=== PATIENT | female | born 1980 | race Two or more races ===

== ENCOUNTER 2023-07-06 05:06 | Emergency (ER) | payer MEDICAID ==
[~2023-07-06] VITALS: Ht 157.5 cm; Wt 71.8 kg
[2023-07-06] MEDS ORDERED: morphine 4 MG/ML inj SYRINge IV ONE ×2 (05:45→06:50)
[2023-07-06] MEDS ORDERED: ondansetron/PF 4mg/2ml inj IV ONE ×2 (05:45→06:50)
[2023-07-06 05:57] LABS: BASOPHILS # (AUTO) 0.1 X10'3 (0-0.2); BASOPHILS % (AUTO) 0.4 % (0-1); EOSINOPHILS # (AUTO) 0.1 X10'3 (0-0.9); EOSINOPHILS % (AUTO) 0.3 % (0-6); HEMATOCRIT 44.2 % (35.0-45.0); HEMOGLOBIN 14.8 g/dl (12.0-16.0); LYMPHOCYTES # (AUTO) 1.1 X10'3 (1.1-4.8); LYMPHOCYTES % (AUTO) 6.6 % (21-51); MEAN CORPUSCULAR HEMOGLOBIN 28.4 PG (27.0-31.0); MEAN CORPUSCULAR HGB CONC 33.4 g/dL (33.0-36.5); MEAN CORPUSCULAR VOLUME 84.9 FL (78-98); MEAN PLATELET VOLUME 8.4 FL (7.4-10.4); MONOCYTES # (AUTO) 0.8 X10'3 (0-0.9); MONOCYTES % (AUTO) 4.5 % (2-12); NEUTROPHILS # (AUTO) 14.8 X10'3 (1.8-7.7); NEUTROPHILS % (AUTO) 88.2 % (42-75); PLATELET COUNT 230 X10'3 (140-440); RED BLOOD COUNT 5.21 X10'6 (4.20-5.60); RED CELL DISTRIBUTION WIDTH 14.2 % (11.5-14.5); WHITE BLOOD COUNT 16.8 X10'3 (4.5-11.0)
[2023-07-06 06:22] LABS: ALANINE AMINOTRANSFERASE 34 U/L (12-78); ALBUMIN 3.8 G/DL (3.4-5.0); ALKALINE PHOSPHATASE 77 IU/L (46-116); ANION GAP 9 (8-16); ASPARTATE AMINO TRANSFERASE 17 U/L (10-37); BILIRUBIN,TOTAL 0.6 MG/DL (0.1-1.0); BLOOD UREA NITROGEN 16 MG/DL (7-18); BUN/CREATININE RATIO 15.8 (10.0-20.0); CALCIUM 8.7 MG/DL (8.5-10.1); CHLORIDE 103 MMOL/L (99-107); CREATININE 1.01 MG/DL (0.40-0.90); GLUCOSE 124 MG/DL (70-104); LIPASE 92 U/L (73-393); POTASSIUM 3.5 MMOL/L (3.5-5.1); SODIUM 137 MMOL/L (135-145); TOTAL CARBON DIOXIDE 25.2 MMOL/L (24-32); TOTAL PROTEIN 7.6 G/DL (6.4-8.2); eCRCL 57 ML/MIN; eGFR 60 ML/MIN
[2023-07-06 06:38] VITALS: BP 117/71; PULSE 86; O2SAT 95
--- NOTE | 2023-07-06 06:42 | NUR ---
PT FAVIOLA AT BEDSIDE REPORTS THAT PT HAS NOT HAD MENSTRAL CYCLE IN YEARS DUE TO CONTROL INJECTION EVERY 3MONTHS FROM 2015 TO 2020. STARTED SPOTTING 1 WEEK AGO.
[2023-07-06] MEDS ORDERED: normal saline 1000ml 1,000 ML IV ONE (06:50)
[2023-07-06 07:22] VITALS: RESP 16
[2023-07-06 07:47] LABS: HCG SERUM QL NEGATIVE
[2023-07-06 12:59] LABS: BILIRUBIN,URINE NEGATIVE (Neg); CLARITY,URINE CLOUDY (Clear); COLOR,URINE YELLOW (Yellow); GLUCOSE, URINE NEGATIVE (Neg); KETONES,URINE 15 mg/dl (Neg); LEUKOCYTE ESTERASE ,URINE MODERATE (Neg); NITRITES, URINE NEGATIVE (Neg); OCCULT BLOOD,URINE LARGE (Neg); PROTEIN,URINE NEGATIVE (Neg)
[2023-07-06 13:50] LABS: UA COLLECTION TYPE CLN CATCH MIDSTREAM
[2023-07-06 13:51] LABS: BACTERIA,URINE 1+ /HPF (Neg); MUCUS STRANDS FEW /LPF (Neg); RBC,URINE TNTC /HPF (0-2); WBC,URINE 50-100 /HPF (0-4)
[2023-07-06 13:52] LABS: SQUAMOUS EPITHELIAL CELL,UR MANY /LPF (FEW); TRANSITIONAL EPI CELLS,URINE MODERATE /HPF
[2023-07-06] MEDS ORDERED: CEPH-585 PO (14:07)
[2023-07-06] MEDS ORDERED: HYDR-3965 PO (14:07)
[2023-07-06 14:20] VITALS: TEMP 98.2
== END 2023-07-06 14:23 | disposition home or self-care (01) ==
LOC: ER 05:07
DX: N83.209 Unspecified ovarian cyst, unspecified side (principal); D25.9 Leiomyoma of uterus, unspecified; N39.0 Urinary tract infection, site not specified
CPT/HCPCS: 36415; 74176; 76830; 76856; 80053; 81001; 83690; 84703; 85025; 93005; 93976; 96361; 96374; 96375; 96376; 99285; J2270; J2405; J7030